=== PATIENT | female | born 1940 | race Caucasian/White ===

== ENCOUNTER 2019-04-21 16:35 | Inpatient (IN) | payer OTHER ==
--- NOTE | ~2019-04-21 | D ---
[facility] [place] [address] DISCHARGE SUMMARY Name: MELANIE BARRAZA Room #: 524B-B DIS IN M.R.#: [id number] Admission: 04/21/19 Attend Phys: Diogenes Farley DO Discharge: 04/27/19 Date of : 42 Report #: [id number] THIS REPORT FOR: //name// CC: Diogenes Farley FAM physician/PCP DATE OF SERVICE: 04/27/2019 ATTENDING PHYSICIAN: Diogenes Farley DO MEDICAL CONSULTANTS: Sanket Parker M.D., also consulting on this case is Ewdard Stevens M.D., Gynecology. DISCHARGE DIAGNOSES: Major neurocognitive disorder, likely due to Alzheimer's disease with behavioral disturbance, improved. ADDITIONAL DIAGNOSES: Vulvar mass, highly suspicious for carcinoma; however, histopathology is pending. Other diagnoses are diabetes mellitus, on metformin, sliding scale insulin; hypertension, on Coreg, Norvasc, lisinopril. The patient was suspicious, though did not admit to smoking tobacco. EKG was done at time of admission showed a QTC of 424, ventricular rate of 60, sinus rhythm. Also noted microbiology done, gram-positive cocci and many gram-negative rods, aerobic and anaerobic cultures pending as is the histopathology as punch biopsy was taken of the vulvar mass. It should be noted greater than 45 minutes was spent on discharge activity. DISCHARGE MEDICATIONS: Coreg 3.125 mg p.o. b.i.d. with meals, Depakote EC 250 mg p.o. b.i.d., calcium carbonate 500 mg, ____ cyanocobalamin 1000 mcg oral supplementation, cholecalciferol 5000 international units p.o. daily, melatonin 10 mg p.o. at bedtime, metformin 500 mg p.o. b.i.d. with meals, ____ 10 mg p.o. daily for hypertension, lisinopril 2.5 mg p.o. daily for hypertension, aspirin 81 mg p.o. daily for cardioprotection and NPH home regimen daily p.r.n. for diabetes mellitus. This admission, we stopped her Aricept given for bradycardia and the degree of her dementia. [facility] She will need to be taken there for an intake. Primary care follow up should be with the PCP. Her DPOA wanted her to leave today before final pathology has resulted. Discussed with Dr. Stevens over the phone the next steps for the mass if it turns to be cancer. The patient will need a gynecological evaluation. Dr. Stevens refers to ____ [facility] for that. REASON FOR ADMISSION: A 78-year-old female brought to the [facility] on a 96-hour hold from [facility]. Apparently, the patient was doing some threatening things and refused to go to the hospital. [address] [address] DISCHARGE SUMMARY Name: MELANIE BARRAZA Room #: 524B-B DIS IN M.R.#: [id number] Admission: 04/21/19 Attend Phys: Diogenes Farley DO Discharge: 04/27/19 Date of : 42 Report #: [id number] HOSPITAL COURSE: The patient was admitted to the Geriatric Psychiatry Unit. The patient scored ____ exact score, but I think it was in the arena of 6-04/23. We had a couple of family meetings ____ girlfriend the need for 17/03 supervision and assistance was emphasized. The sons want to take the patient kind of in a shared fashion to the son that lives in [place] ____ and then the son who lives near [facility]. LABORATORY DATA: Significant lab work this admission; urinalysis showed 2+ protein, few amorphous urates, trace random glucose, blood sugars the day before admission were in the 128-203 range, which is excellent control. Syphilis serology turned out negative. IMAGING: The patient had a head CT done on 04/23/2019, it was essentially normal. Surprisingly, no ____. OBJECTIVE: VITAL SIGNS: Temperature 36.6, pulse 81, respirations 40, BP 143/71, O2 sat 96%. GENERAL: This is a well-developed, fairly nourished female appearing stated age. Attention limited, concentration unknown. Speech is normal rate. Thought process linear and goal directed. Thought content is focused. On her day-to-day needs ____. Memory not formally tested. Insight limited. Judgment limited. Fund of knowledge below average. It should be noted family meeting was had at the day of discharge. I have asked the sons to keep her few more days. They want her to come home today. Dr. Stevens was okay with discharge from the gynecologic standpoint. Diagnosis of dementia was made of the patient as well as brief review of the circumstances surrounding her ____ pathology. Prognosis is poor. By: [id number] Diogenes Farley, DO /nt
[2019-04-21 16:30] VITALS: BP 182/68
[2019-04-21] MEDS ORDERED: AMLODIPINE BESY10 MG PO (17:22)
[2019-04-21] MEDS ORDERED: METFORMIN HCL500 MG PO (17:22)
[2019-04-21] MEDS ORDERED: PROZAC10 MG PO (17:23)
[2019-04-21] MEDS ORDERED: CARVEDILOL3.125 MG PO (17:24)
[2019-04-21] MEDS ORDERED: LISINOPRIL2.5 MG PO (17:24)
[2019-04-21] MEDS ORDERED: ARICEPT 5 MG TAB5 MG PO (17:26)
[2019-04-21] MEDS ORDERED: ASPIR 8181 MG PO (17:26)
[2019-04-21] MEDS ORDERED: DIPHEN25 MG PO (17:28)
[2019-04-21] MEDS ORDERED: NOVOLIN N100 UNIT/1 (17:31)
--- NOTE | 2019-04-21 18:34 | NUR ---
Admitted from [place] arrived by EMS at 1630, to room 524 B, it was reported she would be a 96 hour hold, but she is calm and cooperative now, and signed herself in voluntarily, so was not placed on hold by Dr. Farley, she is alert and oriented x 4, very anxious and nearly hyperventilating, reassured and had her take deep breaths and to speak with me, she did calm down and was able to finish the interview. She stated she is diabetic and takes insulin depending on her "sugar level" I did find other meds in her belonging including antidepressants and antihypertensives, when asked she said "oh yes, those aren't as important as my insulin", she stated today she was frustrated and mad, because her son would not let her go to the [facility] to visit her , that proposed to her on this day. She said she made a statement that she "just wanted to be with her " she stated she didn't mean it she was just made and started walking to the [facility], when EMS picked her up and took her to [facility], she was very angry at [facility], but is now calm and cooperative. Dr. Farley here and visited, orders received and will monitor for safety.
[2019-04-21 19:47] VITALS: BP 170/60
--- NOTE | 2019-04-21 22:56 | NUR ---
RECEIVED REPORT FROM OFFGOING DAY NURSE, ASSUMED CARE OF PATIENT @ 19:15. SITTING IN COMMON ROOM SOCIALIZING WITH PEERS AND WATCHING BASEBALL ON TV. REPORTS SON GOT OUT OF [facility] AND HE AND HIS GIRLFRIEND ARE STAYING WITH PATIENT AT HER HOUSE. BECAME TEARFUL WHEN REPORTING THAT SHE HOPED SON WOULD TAKE CARE OF HER GARDEN WHILE SHE WAS IN THE HOSPITAL. A&OX 3-4. HRRR, LUNGS CTA, ABD NORMOACTIVE. PT SMELLS UNCLEAN, WHEN ASKED WHEN SHE LAST BATHED, SHE BECAME TEARFUL AND DID NOT ANSWER. FSBS 187, LISPRO 3 U S/S PROVIDED. TOOK PO MEDS WHOLE WITH WATER. WILL CONINTIUE TO MONITOR Q 12 MINUTES FOR PATIENT SAFETY.
--- NOTE | 2019-04-22 00:31 | NUR ---
NEW ORDER FOR VISTARIL 25 MG PO X 1 FOR ANXIETY, IF CANNOT GIVE PO, THEN GIVE IM. MELATONIN 10 MG FOR SLEEP. PROZAC 10 MG RESUME @ DAILY.
[2019-04-22 00:48] VITALS: BP 170/60
[2019-04-22 06:17] LABS: CALCIUM 8.8 mg/dL (8.5-10.1); CREATININE 1.4 mg/dL (0.6-1.0); POTASSIUM 4.2 mmol/L (3.5-5.1)
--- NOTE | 2019-04-22 06:33 | NUR ---
slept 7.4 hours overnight
[2019-04-22 08:24] VITALS: BP 170/67
--- NOTE | 2019-04-22 08:38 | EKG ---
[address] [address] ELECTROCARDIOGRAM REPORT Name: MELANIE BARRAZA Room #: [facility] ADM IN M.R.#: [id number] Admission: 04/21/19 Attend Phys: Diogenes Farley DO Discharge: Date of : 42 Report #: [id number] THIS REPORT FOR: //name// [facility] Test Date: 2019-04-21 Test Time: 19:49:05 Pat Name: MELANIE BARRAZA Department: Room: [facility] Gender: F Patient Liaison: Sathya DYSON : 1940 Requested By: Diogenes Farley Order Number: [id number] MD: Tyrone Grier Measurements Intervals [place] Rate: 60 P: -5 CO: 169 QRS: -8 QRSD: 78 T: 56 QT: 424 QTc: 424 Interpretive Statements Sinus rhythm Ventricular premature complex No previous ECG available for comparison Electronically Signed On 04-22-2019 8:37:48 CDT by Tyrone Grier [email or web address] <ELECTRONICALLY SIGNED> By: Tyrone Grier MD 04/22/19836 48 48 Tyrone Grier MD /ANAYA
--- NOTE | 2019-04-22 10:24 | NUR ---
PATIENT AGREEABLE AND COOPERATIVE. CLAIMS MADE MISTAKE BY SAYING SHE WISHED SHE WAS . WAS OVERWHELMED AND MADE WRONG STATEMENT. PATIENT MED COMPLIANCE. RESPONSIVE TO QUESTIONS ADDRESSED TO HER. ADMITS TO DEPRESSION BUT NOT SUICIDAL. STATES LIVES WITH YOUNGER SON - STILL GRIEVING OVER LOSS OF AND MOM A YEAR AGO. COPING HAS BEEN A CHALLENGE FOR HER. AMBULATORY, MAKES NEEDS KNOWN. APPETITE ADEQUATE - PARTICIPATED IN GROUP ACTIVITY IN MORNING AND RETIRED TO HER ROOM AFTER TEN AM TO NAP. BLOOD SUGAR AT 230 IN AM INSULIN 4 UNITS ADMINISTERED. -
[2019-04-22 19:45] VITALS: BP 155/52
--- NOTE | 2019-04-22 23:08 | NUR ---
Care assumed of patient at 1900: Patient alert and oriented x4. Patient pleasant and cooperative. Patient took HS medication without difficulty. Ate 100% HS snack. Patient anxious and restless at times. Patient was able to sit and watch part of the football game with peers for awhile. Patient interacting well with staff. Patient reports that she lost her and her father within a 2 week span. Reports that she lost her oldest son about 4 weeks ago due to an ND. Reports that [facility] made her too sad. Patient does appear depressed. Denies SI/HI/AH/VH at this time. Reports that she was overwhelmed when she made the SI statements before admission. No s/s of paranoia or delusional behaviors at this time. Denies pain or discomfort. Patient able to retire to bed and has been able to sleep without difficulty at this time.
[2019-04-23 01:06] LABS: GLYCOHEMOGLOBIN (HGB A1C) 6.6 % (4.8-5.6)
--- NOTE | 2019-04-23 11:43 | NUR ---
SW attempted to contact pt ke Cai to schedule a FM. SW was not able to find the contact information in [place] under pt summary. SW will follow-up with pt.
[2019-04-23 12:36] VITALS: BP 151/59
--- NOTE | 2019-04-23 12:48 | NUR ---
SW attempt to contact Trell and Paul to schedule a family meeting. FESTUS contacted the family on [phone]. FESTUS was unable to leave voicemail due to phone message been full. SW will have weekend SW contact family.
[2019-04-23 13:39] VITALS: BP 151/59
--- NOTE | 2019-04-23 15:02 | NUR ---
ASSUMED CARE AT 0700 THIS MORNING. PT. UP ON THE UNIT SITTING AND TALKING TO PEERS. SHE HAS BEEN QUIET AND SUBDUED TODAY. SHE INTERACTS UPON APPROACH ONLY. SHE TOOK HER MEDS WITHOUT PROBLEMS. SHE ATE ON THE UNIT, AND ATTENDED GROUPS. SHE IS MOVING FROM PERSON TO PERSON INTERACTING WITH SOME PEERS. SHE HAS SPENT SOME TIME IN HER ROOM RESTING. SHE IS DENYING SI/HI. SHE HAD A CT OF THE HEAD WITHOUT CONTRAST BECAUSE OF TREMORS.
[2019-04-23 19:28] VITALS: BP 133/104
[2019-04-23 19:30] VITALS: BP 141/58
[2019-04-24 06:06] LABS: ALBUMIN 2.3 g/dL (3.4-5.0); DIRECT BILIRUBIN < 0.1 mg/dL (<0.1-0.3); SGOT 13 U/L (15-37); SGPT 14 U/L (30-65); TOTAL BILIRUBIN 0.3 mg/dL (<0.1-1.0); TOTAL PROTEIN 5.8 g/dL (6.4-8.2)
--- NOTE | 2019-04-24 06:24 | NUR ---
VSS, COOPERATED WITH ASSESSMENT, HRRR, LUNGS CTA, ABD NORMO X 4 Q. REPORTS BM TODAY. DENIES PAIN. SLEPT A TOTAL OF 8.4 HOURS.
[2019-04-24 07:26] VITALS: BP 137/60
--- NOTE | 2019-04-24 16:47 | NUR ---
0700: Report rec from [facility] shift, care assumed. [id number]: Ambulatory independently in room, halls and to DR. Feeds self, appetite fair, takes meds whole w/o difficulty. Attended 09 therapy group, 75% participation noted. Cooperative with staff, mood is calm, occasional anxiety noted but easily calmed with reassurance and support. 1600: Son Trell here for visit, contact info given: Trell Suárez [phone]. Family mtg scheduled for 04/25 @ 1100.
--- NOTE | 2019-04-25 00:30 | NUR ---
Care assumed of patient at 1915: Patient alert and oriented x4. Patient calm and cooperative. Patient spoke about her oldest son passing away approximately 4 weeks ago. Patient appears sad and depressed. Patient also spoke about how she saw her son Trell earlier today when he came to visit. Reports that she is ready to return to her home. Reports that her youngest son lives with her to help her around the home and mow the grass. Family meeting is to be held tomorrow to discuss discharge plans. Patient also started to speak about her father and passing away. Patient appeared to become anxious when discussing about them. Patient also seemed to repeat herself several times during our conversation. Appears to be forgetful at times. Patient ate 100% HS snack. Took HS medication without difficulty. Denies pain or discomfort. Patient observed sitting with other peers but appears to be more of a passive participant when around others. Patient denies SI/HI/AH/VH. No s/s of paranoia or delusions observed. Patient was able to retire to bed without difficulty and has been resting quietly since.
[2019-04-25 09:07] VITALS: BP 152/56
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
--- NOTE | 2019-04-25 12:07 | NUR ---
FESTUS and Dr. Miranda had a family meeting with Pt and son Trell. Trell is is wanting Pt discharged as soon as possible. Trell was informed there will need to be plan in place for 24 hour care for the Pt upon discharged. DPOA was also completed at this meeting. next meeting scheduled for Friday04/27/19 at 3pm. Pt may be discharged on this date.
[2019-04-25 13:07] LABS: SYPHILIS AB Negative (Negative)
[2019-04-25 14:17] LABS: URINE BILIRUBIN NEGATIVE (Negative); URINE BLOOD NEGATIVE (Negative); URINE CLARITY CLEAR; URINE COLOR YELLOW; URINE GLUCOSE-RANDOM* TRACE (Negative); URINE KETONES NEGATIVE (Negative); URINE LEUKOCYTES-REFLEX NEGATIVE (Negative); URINE NITRITE-REFLEX NEGATIVE (Negative); URINE PROTEIN (DIPSTICK) 2+ (Negative); URINE UROBILINOGEN 0.2 E.U./dl (0.2-1.0)
[2019-04-25 14:26] LABS: BACTERIA-REFLEX None Seen /HPF (None Seen); CASTS None Seen /LPF (None Seen); CRYSTALS None Seen /LPF (None Seen); SQUAMOUS 0-3 Few /LPF (0-3); URINE RBC 0-2 Rare /HPF (0-2); URINE WBC-REFLEX 0-5 Rare /HPF (0-5)
[2019-04-25 14:27] LABS: AMORPHOUS URATES Few /LPF (None Seen)
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
[2019-04-25 19:52] VITALS: BP 150/59
--- NOTE | 2019-04-26 00:17 | NUR ---
Care assumed of patient at 1915: Patient seated in day room at start of shift. Patient interacting well with staff and peers. Patient alert and oriented x4. Patient calm, pleasant and cooperative. Patient denies pain or discomfort. However, patient noted to be grimacing when she initially sits down and when she uses the bathroom. Shauna care completed and barrier cream applied. Foul odor noted and serous drainage observed. Biopsy to be completed to vulvular mass by surgical specialist on 04/26/19. Patient ate 100% HS snack. Took HS medication without difficulty. Patient retired to bed without difficulty and has been resting quietly since.
[2019-04-26 11:51] VITALS: BP 147/78
[2019-04-26 19:13] VITALS: BP 155/87
--- NOTE | 2019-04-26 19:31 | NUR ---
PATIENT ABLE TO SPEAK WITH SON AND THIS NURSE REGARDING HER GRIEF. ABLE TO DISCUSS HER LATE AND SON, DESCRIBING THEIR HOBBIES & PERSONALITIES. PATIENT SPOKE TO THIS NURSE ABOUT STAYING WITH HER SON CAMERON AFTER DISCHARGE AND WAS HAPPY WHEN DISCUSSING MAKING DINNER, GARDENING, & RIDING WITH HIM. PATIENT HAS SOME INCREASED ANXIETY AND TEARFUL PRIOR TO PROCEDURE FOR VULVAR BIOPSY PERFORMED TODAY BY DR. JURADO. SHE WAS ABLE TO CALM HERSELF WHEN WE DISCUSSED NOT YET KNOWING THE ANSWERS FROM PATHOLOGY REPORTS AND WAS ACCEPTING WHEN DR. JURADO VERBALIZED TO HER THAT SHE HAS A TUMOR AND WE ARE SENDING SPECIMEN FOR TESTING WITH A POTENTIAL FOR CANCER. SHE WAS ABLE TO HANDLE THE INFORMATION WELL. DENIES ANY THOUGHTS OF HARMING HERSELF THIS SHIFT. ABLE TO VERBALIZE COPING SKILLS SHE CAN USE. SHE TOLD THIS NURSE ABOUT A GROUP OF WOMEN SHE HAS GET TOGETHERS WITH CALLED THE "[facility]". SHE STATES MOST OF THOSE WOMEN ARE WIDOWS AND SHE HAS GOOD GRIEF SUPPORT WITH THEM. DISCUSSED POST DISCHARGE SUPPORT FOR GRIEF WITH THE PATIENT AND SON. PATIENT IS AGREEABLE TO ADDITIONAL RESOURCES.
[2019-04-27 01:36] VITALS: BP 155/87
--- NOTE | 2019-04-27 04:57 | NUR ---
PT OUT WITH SELECTED PEERS, WATCHING TV AND INTERACTING APPROPRIATLY. SMILING AND RELAXED. LOOKING FORWARD TO POSSIBLE DC IN THE AM. AFTER SNACKS, TOOK HS MEDS PRESCRIBED. SLEPT WELL THROUGH THE NIGHT.
[2019-04-27 08:00] VITALS: BP 143/71
--- NOTE | 2019-04-27 08:00 | NUR ---
PT SITTING IN WITH OTHER PEERS. PT TEARFUL ABOUT HER LIPSTICK. PT STATED SHE FEELS NAKED WITHOUT LIPSTICK AND EYE LINER. PT SEEMS TO HYPERVENTILATE AT REST.
[2019-04-27 09:38] VITALS: BP 143/71
[2019-04-27] MEDS ORDERED: CARVEDILOL3.125 MG PO (16:18)
[2019-04-27] MEDS ORDERED: DIVALPROEX SOD250 M3 PO (16:19)
[2019-04-27] MEDS ORDERED: B-12500 MCG PO (16:20)
[2019-04-27] MEDS ORDERED: TUMS PO (16:20)
[2019-04-27] MEDS ORDERED: PT HOME MEDICATION MISCELL (16:21)
[2019-04-27] MEDS ORDERED: MELATONIN5 M1 PO (16:21)
[2019-04-27] MEDS ORDERED: VITAMIN D5000 UNIT PO (16:21)
[2019-04-27 16:56] VITALS: BP 143/71
--- NOTE | 2019-04-27 17:00 | NUR ---
FAMILY HERE FOR MEETING. PT GOING HOME WITH FAMILY KOLTONIGHT. PATIENT WANTED TO EAT DINNER FIRST BEFORE LEAVING.
--- NOTE | 2019-04-27 17:03 | NUR ---
Patient Name: MELANIE BARRAZA Admission Date: 04/21/19 DISCHARGE PLAN: Pt will d/c home with her son's. Care Assessment: Pt was assesed by Dr. Farley in diagnosed with Major Neurocognitive Disorder. Level II Assessment: None Transportation: Pt will be transported by her son. Special Instructions/Notes: Pt will need a continuance care with a psychiatrist. SW recommended [facility]. Pt son kari mention that he schedule appointment tomorrow due to pt wanting to leave AMA. DISCHARGE TO FACILITY: Facility: Phone: Fax: Address: Contact Name: Phone: PCP: STEPAN Psychiatrist:
[2019-04-27 17:20] VITALS: BP 143/71
--- NOTE | 2019-04-27 17:25 | NUR ---
WENT OVER DISCHARGE INSTRUCTIONS WITH SON. VERBAL UNDERSTOOD D/C ORDERS. PT LEFT VIA AMBULATION TO HOME.
--- NOTE | 2019-04-28 17:06 | PATH ---
[facility] [address] [place] [address] PATHOLOGY RPT PROCEDURE Name: MELANIE SUÁREZ Room #: 524B-B DIS IN M.R.#: [id number] Admission: 04/21/19 Date of : 42 Discharge: 04/27/19 Report #: [id number] Path Case #: [id number] [facility] Accession Number: [id number] . 01 Material submitted: . vulva - RIGHT VULVAR MASS/TUMOR . Modifiers: right . 01 Clinical history: . SI, psychosis, aggressive/combative behavior . 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 LBQ/04/28/2019 . 02 Comment: Examination shows superficially sampled "tumor" wherein the epithelial fragments show changes consistent with high grade squamous intraepithelial lesion (OVIDIO II-III). Desmoplastic stromal response is not definitively identified; however, few foci are suspicious for an invasive squamous cell carcinoma. Much of the specimen has been tangentially sectioned limiting further interpretation. . Dr. Patricia Spear has seen media sales representative slides of this case and concurs with the diagnosis rendered. . Findings of this case are telephoned to Dr. Del Valle at approximately 12:00 p.m. and later in the afternoon with Dr. Edward Stevens on 04/28/19. (IUV/db; 04/28/2019) . 02 Electronically signed: . Maci Dunne MD, Pathologist NPI- [id number] . 01 Gross description: . The specimen is received in formalin, labeled " Melanie Suárez, right vulva ", is a 0.5 x 0.3 x 0.2 cm segment of ríos-white, friable skin. Also received is a dark brown hemorrhagic tissue fragment measuring 0.4 x 0.2 x 0.1 cm. The margins are inked black, and each bisected and entirely submitted in A1. (SWS; 04/27/2019) SHS/SHS . 02 Pathologist provided ICD-10: N90.1 . 02 CPT . [address] [address] PATHOLOGY RPT PROCEDURE Name: MELANIE SUÁREZ Room #: 524B-B DIS IN M.R.#: [id number] Admission: 04/21/19 Date of : 42 Discharge: 04/27/19 Report #: [id number] Path Case #: [id number] Specimen Comment: A courtesy copy of this report has been sent to Specimen Comment: [phone], . Specimen Comment: Report sent to / DR DEL VALLE Performed at: [address], [place] [id number] MD Hadley Manriquez MD Phone: [phone] Performed at: [address] [id number] MD Maci Dunne MD Phone: [phone]
== END 2019-04-27 17:25 | disposition home or self-care (01) | DRG 988 ==
LOC: SBH 16:35
PROVIDERS: ADMIT Psychiatry & Neurology Psychiatry
PROC: 0UBMXZX Excision of Vulva, External Approach, Diagnostic (ICD-10-PCS; principal; 2019-04-26)
DX: G30.9 Alzheimer's disease, unspecified (principal); F02.81 Dementia in other diseases classified elsewhere, unspecified severity, with behavioral disturbance; N90.89 Other specified noninflammatory disorders of vulva and perineum; E11.9 Type 2 diabetes mellitus without complications; I10 Essential (primary) hypertension; F32.9 Major depressive disorder, single episode, unspecified; F41.9 Anxiety disorder, unspecified; F19.10 Other psychoactive substance abuse, uncomplicated; Z91.5 Personal history of self-harm; Z79.4 Long term (current) use of insulin; Z79.899 Other long term (current) drug therapy
CPT/HCPCS: 10880